=== PATIENT | female | born 1955 | race Caucasian/White ===

== ENCOUNTER 2024-09-09 17:00 | Inpatient (IN) | payer MEDICARE, BC ==
[~2024-09-09] VITALS: Ht 160 cm; Wt 55.3 kg
[2024-09-09] MEDS ORDERED: BUDE8.435 PO (17:33)
[2024-09-09] MEDS ORDERED: LACO50TA2 PO (17:33)
[2024-09-09] MEDS ORDERED: LEVO88TA5 PO (17:33)
[2024-09-09] MEDS ORDERED: TOPI200T PO (17:33)
[2024-09-09] MEDS ORDERED: [UNRECOGNIZED DRUG - CODE] PO (17:33)
[2024-09-09] MEDS ORDERED: TOPI100T PO (17:33)
[2024-09-09 19:54] LABS: CALCIUM 8.9 mg/dL (8.5-10.1); CREATININE 1.1 mg/dL (0.6-1.3); POTASSIUM 3.7 mmol/L (3.5-5.1)
[2024-09-09 20:45] VITALS: BP 109/68; TEMP 98.7; O2SAT 97
[2024-09-09] MEDS ORDERED: MAGNESIUM HYDROXIDE 30 ML LIQUID UDC PO PRN (20:45)
[2024-09-09] MEDS ORDERED: MAG HYDROX/AL HYDROX/SIMETH 30 ML LIQUID UDC PO PRN (20:45)
[2024-09-09] MEDS: BLOOD SUGAR DIAGNOSTIC 1 EACH STRIP VI ONE (21:39)
[2024-09-09] MEDS: TEMAZEPAM 7.5 MG CAPSULE PO PRN (22:01)
[2024-09-10] MEDS: CLONAZEPAM 0.5 MG TABLET PO PRN ×2 (02:30→15:46)
[2024-09-10 08:02] VITALS: BP 113/80; TEMP 97.5; O2SAT 97
[2024-09-10] MEDS: LACOSAMIDE 50 MG TABLET PO SCH (09:20)
[2024-09-10] MEDS: TOPIRAMATE 100 MG TABLET PO SCH (09:20)
[2024-09-10] MEDS ORDERED: BUDESONIDE 9 MG PO PRN (09:45)
[2024-09-10] MEDS: LEVOTHYROXINE SODIUM 88 MCG TABLET PO SCH (10:25)
[2024-09-10] MEDS: [UNRECOGNIZED DRUG - REMARK] PO PRN (10:31)
[2024-09-10] MEDS ORDERED: PHEN-563 PO (11:30)
[2024-09-10] MEDS: ACETAMINOPHEN 325 MG TABLET PO PRN (15:49)
[2024-09-10 16:04] VITALS: BP 108/65; TEMP 97.8; O2SAT 98
[2024-09-10] MEDS: LITHIUM CARBONATE 150 MG CAPSULE PO SCH (17:16)
[2024-09-10 20:00] VITALS: BP 125/77; TEMP 99.5; O2SAT 100
[2024-09-10] MEDS: risperiDONE 1 MG/ML UDC GT SCH (20:16)
[2024-09-10] MEDS: CLORAZEPATE 15 MG PO SCH (20:16)
[2024-09-10] MEDS: TEMAZEPAM 7.5 MG CAPSULE PO PRN (21:33)
[2024-09-11 07:51] VITALS: BP 135/88; TEMP 97.5; O2SAT 100
[2024-09-11] MEDS: CLONAZEPAM 1 MG TABLET PO ONE (09:52)
[2024-09-11 12:14] LABS: *BILIRUBIN,URIN NEGATIVE (NEGATIVE); *CLARITY,URINE CLEAR (CLEAR); *COLOR,URINE YELLOW (YELLOW); *KETONES,URINE NEGATIVE (NEGATIVE); *PROTEIN,URINE NEGATIVE (NEGATIVE); *UROBILINOGEN,URINE 0.2 E.U./dl (NORMAL); LEUKOCYTE ESTERASE ,URINE 1+ (NEGATIVE); NITRITE, URINE POSITIVE (NEGATIVE); UGLUCOSE NEGATIVE (NEGATIVE)
[2024-09-11 12:16] LABS: *BLOOD, URINE TRACE (NEGATIVE); BACTERIA,URINE MANY /HPF (NONE SEEN); SQUAMOUS EPITHELIAL CELL,UR MODERATE /HPF (NONE SEEN); WBC,URINE 20-50 /HPF (0-3)
[2024-09-11 16:00] VITALS: BP 145/80; TEMP 98.8; O2SAT 99
[2024-09-11] MEDS: CEphaleXIN 500 MG CAPSULE PO SCH (16:08)
[2024-09-11 20:00] VITALS: BP 128/81; TEMP 98.2; O2SAT 95
[2024-09-11] MEDS: risperiDONE 1 MG/ML UDC PO SCH (20:48)
[2024-09-11] MEDS: TEMAZEPAM 7.5 MG CAPSULE PO PRN (22:16)
[2024-09-12] MEDS: LEVOTHYROXINE SODIUM 88 MCG TABLET PO SCH (06:36)
[2024-09-12] MEDS ORDERED: TEMAZEPAM 7.5 MG CAPSULE PO PRN (08:00)
[2024-09-12 08:06] VITALS: BP 117/71; TEMP 97.8; O2SAT 100
[2024-09-12] MEDS ORDERED: buPROPion XL 150 MG TAB.SR.24H PO SCH ×2 (09:00)
[2024-09-12 16:06] VITALS: BP 118/75; TEMP 98; O2SAT 98
[2024-09-12 20:00] VITALS: BP 131/69; TEMP 98.9; O2SAT 95
[2024-09-13 08:08] VITALS: BP 122/51; TEMP 98; O2SAT 98
[2024-09-13 16:12] VITALS: BP 128/88; TEMP 97.6; O2SAT 96
[2024-09-13 20:05] VITALS: BP 138/83; TEMP 98.1; O2SAT 98
[2024-09-13] MEDS: ATORVASTATIN 20 MG TABLET PO SCH (20:58)
[2024-09-13] MEDS: TEMAZEPAM 15 MG CAPSULE PO PRN (22:29)
[2024-09-14 08:04] VITALS: BP 138/96; TEMP 98.4; O2SAT 100
[2024-09-14 09:08] LABS: BASOPHILS % (AUTO) 0.7 % (0.0-2.0); EOSINOPHILS # (AUTO) 0.2 K/uL (0.0-0.7); EOSINOPHILS % (AUTO) 3.5 % (0.0-7.0); HEMATOCRIT 39.1 % (31.2-41.9); HEMOGLOBIN 13.4 g/dL (10.9-14.3); LYMPHOCYTES # (AUTO) 1.4 K/uL (0.8-4.8); LYMPHOCYTES % (AUTO) 27.7 % (20.5-51.5); MEAN CORPUSCULAR HGB CONC 34 g/dL (32.3-35.6); MEAN CORPUSCULAR VOLUME 96.1 fL (75.5-95.3); MONOCYTES # (AUTO) 0.2 K/uL (0.1-1.30); NEUTROPHILS # (AUTO) 3.1 K/uL (1.8-8.9); NEUTROPHILS % (AUTO) 63.1 % (38.5-71.5); PLATELET COUNT (AUTO) 155 K/uL (179-408); RED BLOOD CELL COUNT(AUTO) 4.06 MIL/uL (3.63-4.92); WHITE BLOOD COUNT (AUTO) 4.9 K/uL (3.8-11.8)
[2024-09-14 09:12] LABS: DIFFERENTIAL COMMENT 1
[2024-09-14 09:27] LABS: CALCIUM 8.7 mg/dL (8.5-10.1); CREATININE 0.7 mg/dL (0.6-1.3); MAGNESIUM 2.3 mg/dL (1.8-2.4); POTASSIUM 3.2 mmol/L (3.5-5.1)
[2024-09-14 09:44] LABS: THYROID STIMULATING HORMONE 3.664 mIU/mL (0.358-3.740)
[2024-09-14] MEDS: POTASSIUM CHLORIDE 10 MEQ TAB.PRT.SR PO ONE (12:19)
[2024-09-14] MEDS: LITHIUM CARBONATE 300 MG CAPSULE PO SCH (16:18)
[2024-09-14] MEDS ORDERED: LITHIUM CARBONATE 150 MG CAPSULE PO SCH (17:00)
[2024-09-14 19:45] VITALS: BP 132/63; TEMP 98.5; O2SAT 98
[2024-09-14] MEDS: CLONAZEPAM 0.5 MG TABLET PO SCH (21:25)
[2024-09-15 07:39] VITALS: BP 125/68; TEMP 97.6; O2SAT 97
[2024-09-15] MEDS: AMOXICILLIN-CLAVUL 875-125MG TABLET PO SCH (13:45)
[2024-09-15 16:00] VITALS: BP 115/60; TEMP 97.2; O2SAT 97
[2024-09-15] MEDS ORDERED: TEMAZEPAM 15 MG CAPSULE PO PRN (17:30)
[2024-09-15 19:55] VITALS: BP 112/70; TEMP 98.1; O2SAT 96
[2024-09-15] MEDS: TEMAZEPAM 15 MG CAPSULE PO SCH (21:51)
[2024-09-16 08:04] VITALS: BP 122/70; TEMP 97.8; O2SAT 100
[2024-09-16] MEDS: LIDOCAINE 5% PATCH TD SCH (13:31)
[2024-09-16 16:08] VITALS: BP 116/74; TEMP 98; O2SAT 100
[2024-09-17 08:00] VITALS: BP 138/82; TEMP 98.6; O2SAT 99
[2024-09-17 16:08] VITALS: BP 138/68; TEMP 98; O2SAT 100
[2024-09-17 20:08] VITALS: BP 157/75; TEMP 98.2; O2SAT 98
[2024-09-17] MEDS: CLORAZEPATE 15 MG PO SCH (20:57)
[2024-09-17] MEDS: TEMAZEPAM 15 MG CAPSULE PO SCH (21:00)
[2024-09-17] MEDS ORDERED: PATIENT MAY USE OWN MED- MD OK PO SCH (21:00)
[2024-09-18] MEDS: CLONAZEPAM 0.5 MG TABLET PO PRN (02:50)
[2024-09-18 08:09] VITALS: BP 128/78; TEMP 97.9; O2SAT 98
[2024-09-18 10:35] LABS: THYROID STIMULATING HORMONE 3.207 mIU/mL (0.358-3.740)
[2024-09-18 16:08] VITALS: BP 127/76; TEMP 98.9; O2SAT 100
[2024-09-18 19:48] VITALS: BP 136/81; TEMP 98.2; O2SAT 98
[2024-09-19] MEDS ORDERED: DOSING BY PHARMACY-MD TO SPECIFY MED/ROUTE XX PRN (09:45)
[2024-09-19 16:10] VITALS: BP 132/81; TEMP 98.2; O2SAT 96
[2024-09-19 20:00] VITALS: BP 128/69; TEMP 98.6; O2SAT 97
[2024-09-19] MEDS: CLORAZEPATE 15 MG PO SCH (20:41)
[2024-09-20 08:12] VITALS: BP 125/84; TEMP 97.7; O2SAT 100
[2024-09-20 09:46] LABS: BASOPHILS % (AUTO) 0.9 % (0.0-2.0); EOSINOPHILS # (AUTO) 0.2 K/uL (0.0-0.7); EOSINOPHILS % (AUTO) 3.5 % (0.0-7.0); HEMATOCRIT 36.4 % (31.2-41.9); HEMOGLOBIN 12.6 g/dL (10.9-14.3); LYMPHOCYTES % (AUTO) 23.7 % (20.5-51.5); MEAN CORPUSCULAR HEMOGLOBIN 33.4 uug (24.7-32.8); MEAN CORPUSCULAR HGB CONC 35 g/dL (32.3-35.6); MONOCYTES # (AUTO) 0.2 K/uL (0.1-1.30); MONOCYTES % (AUTO) 4.3 % (0.0-11.0); NEUTROPHILS % (AUTO) 67.6 % (38.5-71.5); PLATELET COUNT (AUTO) 146 K/uL (179-408); RED BLOOD CELL COUNT(AUTO) 3.76 MIL/uL (3.63-4.92); RED CELL DISTRIBUTION WIDTH 15.7 % (12.3-17.7); WHITE BLOOD COUNT (AUTO) 4.4 K/uL (3.8-11.8)
[2024-09-20 10:44] LABS: DIFFERENTIAL COMMENT 1
[2024-09-20 16:04] VITALS: BP 126/73; TEMP 98.2; O2SAT 100
[2024-09-20] MEDS: LITHIUM CARBONATE 300 MG CAPSULE PO SCH (17:18)
[2024-09-20 21:41] VITALS: BP 141/83; TEMP 98.4; O2SAT 98
[2024-09-21] MEDS: LITHIUM CARBONATE 300 MG TABLET.SA PO SCH (10:30)
== END 2024-09-21 11:45 | disposition home health service (06) | DRG 885 ==
LOC: ER 17:00 → GPS 20:39
PROVIDERS: ADMIT Psychiatry & Neurology Psychiatry
DX: F31.9 Bipolar disorder, unspecified (principal); F50.00 Anorexia nervosa, unspecified; F13.20 Sedative, hypnotic or anxiolytic dependence, uncomplicated; N39.0 Urinary tract infection, site not specified; E03.9 Hypothyroidism, unspecified; G40.909 Epilepsy, unspecified, not intractable, without status epilepticus; F41.9 Anxiety disorder, unspecified; Z96.611 Presence of right artificial shoulder joint; Z90.710 Acquired absence of both cervix and uterus; Z85.3 Personal history of malignant neoplasm of breast; Z79.899 Other long term (current) drug therapy; Z88.2 Allergy status to sulfonamides; Z79.890 Hormone replacement therapy; K52.831 Collagenous colitis; E78.5 Hyperlipidemia, unspecified; B96.83 Acinetobacter baumannii as the cause of diseases classified elsewhere; Z86.79 Personal history of other diseases of the circulatory system
CPT/HCPCS: 36415; 70030-TC; 70450; 71045; 80184; 83735; 83921; 84443; 85025; 93005; J8499